=== PATIENT | male | born 1985 ===

== ENCOUNTER 2019-01-19 13:35 | Outpatient (CLI) | payer BC ==
--- NOTE | 2019-01-19 14:13 | ULT ---
EXAM: Right lower extremity venous Doppler US HISTORY: Right lower extremity edema and pain FINDINGS: Grayscale, color-flow, Doppler evaluation, spectral analysis of the right lower extremity venous stru ctures is performed with 2-D imaging. The right common femoral, superficial femoral, popliteal, posterior tibial, proximal greater saphenous and profunda femoral veins are imaged. There is normal luminal compressibility, flow, and augmentation the visualized deep venous structures of the right lower extremity. There is a enlarged lymph node in the right groin measuring 3.1 x 2.7 cm. The focal area of palpable concern in the posterior lower lateral leg just inferior to the knee demonstrates tissue edema without evidence of mass or fluid collection. IMPRESSION: No evidence of a deep vein thrombosis in the right lower extremity.
== END 2019-01-19 13:36 | disposition home or self-care (01) ==
LOC: ULT 13:35
PROVIDERS: ATTEND Family Medicine
DX: L03.115 Cellulitis of right lower limb (principal); R60.0 Localized edema